=== PATIENT | female | born 1960 | race Caucasian/White ===

== ENCOUNTER → 2022-06-09 15:41 | Outpatient (BNVA) | payer BC, SELFPAY | PROVIDERS: PCP Nurse Practitioner Family; Visit Provider Nurse Practitioner Family | DX: L72.9 Follicular cyst of the skin and subcutaneous tissue, unspecified (principal); L08.9 Local infection of the skin and subcutaneous tissue, unspecified; L29.9 Pruritus, unspecified; L30.9 Dermatitis, unspecified; Z13.220 Encounter for screening for lipoid disorders; Z78.0 Asymptomatic menopausal state; Z12.31 Encounter for screening mammogram for malignant neoplasm of breast; Z12.11 Encounter for screening for malignant neoplasm of colon; Z76.89 Persons encountering health services in other specified circumstances; N63.32 Unspecified lump in axillary tail of the left breast; N63.31 Unspecified lump in axillary tail of the right breast | CPT/HCPCS: 80053; 80061; 82306; 84443 ==

== ENCOUNTER 2022-08-21 12:58 | Outpatient (CLI) | payer BC, SELFPAY ==
--- NOTE | 2022-08-21 13:26 | MM_ITS ---
WS: [id number] BILATERAL 3D TOMOSYNTHESIS DIGITAL SCREENING MAMMOGRAM WITH CAD CLINICAL INFORMATION: SCREENING HISTORY: Screening mammogram. LEFT breast pain and soreness. COMPARISON: None. TECHNIQUE: Bilateral CC and MLO. FINDINGS: The breast are composed of extremely dense tissue, which can limit the detection of small underlying mass lesions. No suspicious focal mass, asymmetry, calcifications, or architectural distortion. No ev idence of malignancy. MM/[place] [id number] IMPRESSION: BI-RADS: 1-Negative FOLLOW UP: 1 Year Follow-up Recommend return to annual screening mammography.
== END 2022-08-21 12:59 | disposition home or self-care (01) ==
LOC: RAD 12:59
PROVIDERS: PCP Nurse Practitioner Family; Visit Provider Nurse Practitioner Family
DX: Z12.31 Encounter for screening mammogram for malignant neoplasm of breast (principal)
CPT/HCPCS: 77063; 77067

== ENCOUNTER → 2023-12-03 13:43 | Outpatient (BNVA) | payer MEDICARE, BC, SELFPAY | PROVIDERS: PCP Nurse Practitioner Family; Visit Provider Nurse Practitioner Family | DX: Z86.69 Personal history of other diseases of the nervous system and sense organs (principal); Z76.89 Persons encountering health services in other specified circumstances; L30.9 Dermatitis, unspecified | CPT/HCPCS: 80053; 85025 ==